=== PATIENT | female | born 1965 | race Caucasian/White ===

== ENCOUNTER 2017-07-14 07:27 | Outpatient (CLI) | payer OTHER | END 2017-07-14 07:28 | disposition home or self-care (01) | LOC: BICMAMMO 07:27 | PROVIDERS: ATTEND Obstetrics & Gynecology | DX: Z12.31 Encounter for screening mammogram for malignant neoplasm of breast (principal); Z13.820 Encounter for screening for osteoporosis; M85.88 Other specified disorders of bone density and structure, other site | CPT/HCPCS: 77067; 77080; G0279 ==

== ENCOUNTER 2018-01-19 05:07 | Emergency (ER) | payer OTHER ==
[2018-01-19] MEDS ORDERED: Fentanyl 100 MCG/2 ML VIAL ONE (05:22)
[2018-01-19] MEDS ORDERED: Bupivacaine 0.5% 10 ML VIAL ONE (05:22)
[2018-01-19] MEDS ORDERED: Ondansetron HCl/PF 4 MG/2 ML Vial ONE (05:22)
[2018-01-19] MEDS ORDERED: Morphine 4 MG/ML Carpuject ONE ×2 (05:54→06:14)
[2018-01-19] MEDS ORDERED: CEFAZOLIN 1 GM VIAL ONE (05:58)
[2018-01-19] MEDS ORDERED: Bacitracin Zinc 1 Packet ONE (06:04)
[2018-01-19] MEDS ORDERED: Adacel (T-DAP) 0.5 ML VIAL ONE (06:26)
[2018-01-19] MEDS ORDERED: HYDROcodone/Acetaminophen 7.5/325 mg Tablet ONE (06:45)
--- NOTE | 2018-01-19 07:37 | RAD ---
3 VIEWS LEFT WRIST: Date: 01/19/18 HISTORY: Left wrist pain after injury. Obvious deformity seen. FINDINGS: AP, lateral, and oblique views of left wrist obtained. Images demonstrate a transverse displaced frac ture involving the distal left radial and ulnar metaphyses. There is anterior and lateral displacemen t of the distal fracture fragments. No other significant abnormality seen. IMPRESSION: Distal left radial and ulnar fractures. POS: [facility]
--- NOTE | 2018-01-19 08:27 | RAD ---
4 VIEWS LEFT ELBOW: Date: 01/19/18 COMPARISON: None. HISTORY: Fall with left elbow pain. FINDINGS: Four views of the left elbow show no evidence of acute fracture or dislocation. No elbow effusion is seen. No degenerative changes are present. IMPRESSION: No evidence of acute osseous abnormality. POS: [facility]
--- NOTE | 2018-01-19 08:30 | RAD ---
LEFT WRIST TWO VIEWS: HISTORY: Distal radius fracture. COMPARISON: None. FINDINGS: Two views of the left wrist show an underlying splint, which obscures fine bony and soft tissue detai l. There are comminuted fractures of the metaphyses of the distal radius and ulna. The ulna fractur e is still moderately displaced on the lateral radiograph. IMPRESSION: Distal radius and ulna fractures. POS: [facility]
== END 2018-01-19 07:40 | disposition home or self-care (01) ==
LOC: SCSER 05:07
DX: S52.502A Unspecified fracture of the lower end of left radius, initial encounter for closed fracture (principal); S52.602A Unspecified fracture of lower end of left ulna, initial encounter for closed fracture; F41.9 Anxiety disorder, unspecified; W18.30XA Fall on same level, unspecified, initial encounter
CPT/HCPCS: 25660; 90471; 90715; 96361; 96365; 96375; J0690; J2270; J2405; J3010; J3490

== ENCOUNTER 2018-01-20 09:57 | Day surgery (SDC) | payer OTHER ==
[2018-01-19 12:30] VITALS: BMI 27.4
[2018-01-20] MEDS ORDERED: CEFAZOLIN/Water 2 GM/20 ML SYRINGE ONE (10:45)
[2018-01-20] MEDS ORDERED: Fentanyl 100 MCG/2 ML VIAL ONE (11:25)
[2018-01-20] MEDS ORDERED: Midazolam HCl 2 mg/2 ml Vial ONE (11:25)
[2018-01-20] MEDS ORDERED: Ropivacaine 0.5% HCl/PF (150 MG/30 ML VIAL) ONE (13:45)
[2018-01-20] MEDS ORDERED: PROPOFOL 200 MG/20 ML VIAL ONE (14:57)
[2018-01-20] MEDS ORDERED: Lidocaine 1% PF 5 ML VIAL ONE (14:57)
[2018-01-20] MEDS ORDERED: Ketorolac Tromethamine 30 MG/ML VIAL ONE (14:57)
[2018-01-20] MEDS ORDERED: Ondansetron HCl/PF 4 MG/2 ML Vial ONE (14:57)
--- NOTE | 2018-01-20 16:59 | RAD ---
LEFT FOREARM TWO VIEWS: 01/20/18 HISTORY: ORIF left distal radial and ulnar fractures. FINDINGS/IMPRESSION: Two spot fluoroscopic intraoperative images of the left distal forearm demonstrate interval reduction and internal fixation of the distal radial and ulnar fractures since the previous day's exam. POS: [facility]
--- NOTE | 2018-01-20 17:10 | OP ---
DATE OF PROCEDURE: 01/20/2018 SURGEON: Brock Cotton M.D. PREOPERATIVE DIAGNOSIS: Left distal radius and ulnar fracture. POSTOPERATIVE DIAGNOSIS: Left distal radius and ulnar fracture. PROCEDURE: Open reduction and internal fixation of left distal radius and open reduction and interna l fixation of left ulna. INDICATIONS: Ms. Dacosta is a 52-year-old female who fell. She fractured her distal radius and ulna . She was indicated for the above procedures to restore anatomic alignment and promote healing. Ris ks have been reviewed in detail. She elected to proceed with the operation. Risks include nonunion, malunion, nerve or vascular injury, infection, hardware failure or pain, and others. IMPLANTS: Synthes volar variable angle distal radius plate and Synthes 2.0 mini fragment locking odette te. DESCRIPTION OF PROCEDURE: Ms. Dacosta was identified in the preoperative holding area. Her correct extremity was marked. She was carried to the operating room. She was positioned supine. General an esthesia was induced. A multidisciplinary timeout was performed. The left upper extremity was prepp ed and draped in sterile fashion. We began the procedure with a FCR volar approach to the wrist. We dissected down through the subcuta neous tissues to the FCR tendon. The tendon sheath was opened. We then dissected more deeply down t o the pronator quadratus which was elevated from the distal radius. This allowed exposure of the rig ht distal radius fracture. This was comminuted and displaced. At this point, we performed an anatom ic reduction using K-wires and reduction clamps. We took x-ray images confirming reduction. We then applied a Synthes volar distal radius plate. We placed multiple locking screws distally and nonlock ing screws proximally. The plate fit well and there were no complications. We took final images aft er all hardware was placed. At this point, we moved to the ulna. The patient had a small puncture wound which was opened and irr igated thoroughly. We then performed an approach to the distal ulna. We dissected down through the subcutaneous tissues and exposed the distal ulna fracture. This was a transverse and displaced fract ure. At this point, we performed a reduction of the fracture after irrigation. We then held this wi th reduction clamps. Finally, we applied a Synthes 2.0 locking plate along the dorsal lateral cortex of the ulna rigidly fixing the fracture. Again, we took x-ray images. We thoroughly irrigated with copious lavage. We closed all wounds appropriately in layers and placed a sterile splint. The jarvis ent was taken to the recovery room in good condition without complication.
== END 2018-01-20 15:42 | disposition home or self-care (01) ==
LOC: SDC 09:57
PROVIDERS: ATTEND Orthopaedic Surgery
PROC: 0PSJ04Z Reposition Left Radius with Internal Fixation Device, Open Approach (ICD-10-PCS; principal; 2018-01-20)
PROC: 0PSL04Z Reposition Left Ulna with Internal Fixation Device, Open Approach (ICD-10-PCS; principal; 2018-01-20)
DX: S52.502A Unspecified fracture of the lower end of left radius, initial encounter for closed fracture (principal); S52.602A Unspecified fracture of lower end of left ulna, initial encounter for closed fracture; F41.9 Anxiety disorder, unspecified; Z79.899 Other long term (current) drug therapy; Z88.2 Allergy status to sulfonamides; W19.XXXA Unspecified fall, initial encounter
CPT/HCPCS: 76001; C1713; J1885; J2001; J2250; J2405; J2704; J2795; J3010

== ENCOUNTER 2018-01-27 14:04 | Outpatient (CLI) | payer OTHER | END 2018-01-27 14:05 | disposition home or self-care (01) | LOC: BICMAMMO 14:04 | PROVIDERS: ATTEND Obstetrics & Gynecology | DX: R92.8 Other abnormal and inconclusive findings on diagnostic imaging of breast (principal) | CPT/HCPCS: G0279 ==

== ENCOUNTER 2018-08-01 13:51 | Outpatient (CLI) | payer OTHER | END 2018-08-01 13:52 | disposition home or self-care (01) | LOC: BICMAMMO 13:51 | PROVIDERS: ATTEND Obstetrics & Gynecology | DX: Z12.31 Encounter for screening mammogram for malignant neoplasm of breast (principal) | CPT/HCPCS: 77066; G0279 ==

== ENCOUNTER 2020-04-29 15:02 | Outpatient (CLI) | payer BC ==
--- NOTE | 2020-04-29 15:56 | MMO ---
Bilateral MAMMO Bilat Screen [facility]. CLINICAL HISTORY: Patient is 54 years old and is seen for screening. The patient has no family history of breast cancer. The patient has no personal history of cancer. VIEWS: The views performed were: bilateral craniocaudal with tomosynthesis and bilateral mediolateral oblique with tomosynthesis. FILMS COMPARED: The present examination has been compared to prior imaging studies performed at [facility] on 07/14/2017, 01/27/2018 and 08/01/2018. This study has been interpreted with the assistance of computer-aided detection. MAMMOGRAM FINDINGS: The breasts are heterogeneously dense, which could obscure a lesion on mammography. There are stable benign appearing calcifications seen in both breasts. There are no suspicious masses, suspicious calcifications, or new areas of architectural distortion. IMPRESSION: THERE IS NO MAMMOGRAPHIC EVIDENCE OF MALIGNANCY. A ROUTINE FOLLOW-UP MAMMOGRAM IN 1 YEAR IS RECOMMENDED. THE RESULTS OF THIS EXAM WERE SENT TO THE PATIENT. ACR BI-RADS Category 2 - Benign finding MAMMOGRAPHY NOTE: 1. A negative mammogram report should not delay a biopsy if a dominant of clinically suspicious mass is present. 2. Approximately 10% to 15% of breast cancers are not detected by mammography. 3. Adenosis and dense breasts may obscure an underlying neoplasm. Reported by: ANA NICOLAS MD Electonically Signed: [id number]
== END 2020-04-29 15:03 | disposition home or self-care (01) ==
LOC: BICMAMMO 15:02
PROVIDERS: ATTEND Family Medicine
DX: Z12.31 Encounter for screening mammogram for malignant neoplasm of breast (principal)
CPT/HCPCS: 77063; 77067

== ENCOUNTER 2021-06-30 11:39 | Outpatient (CLI) | payer BC | END 2021-06-30 11:40 | disposition home or self-care (01) | LOC: BICMAMMO 11:39 | PROVIDERS: ATTEND Family Medicine | DX: Z12.31 Encounter for screening mammogram for malignant neoplasm of breast (principal) | CPT/HCPCS: 77063; 77067 ==

== ENCOUNTER → 2021-07-03 | Outpatient (CLI) | payer BC | LOC: SLEEPLAB 16:30 | PROVIDERS: ATTEND Family Medicine | DX: G47.33 Obstructive sleep apnea (adult) (pediatric) (principal); F41.9 Anxiety disorder, unspecified; R06.83 Snoring; G47.00 Insomnia, unspecified | CPT/HCPCS: 95806 ==

== ENCOUNTER 2023-01-01 15:04 | Outpatient (CLI) | payer BC | END 2023-01-01 15:05 | disposition home or self-care (01) | LOC: ULT 15:04 | PROVIDERS: ATTEND Family Medicine | DX: N95.0 Postmenopausal bleeding (principal) | CPT/HCPCS: 76856 ==

== ENCOUNTER 2023-06-23 07:32 | Outpatient (CLI) | payer BC | END 2023-06-23 07:33 | disposition home or self-care (01) | LOC: ULT 07:32 | PROVIDERS: ATTEND Family Medicine | DX: K80.20 Calculus of gallbladder without cholecystitis without obstruction (principal) | CPT/HCPCS: 76705 ==

== ENCOUNTER 2023-06-29 14:44 | Outpatient (CLI) | payer BC ==
[2023-06-29 15:22] LABS: #Basophils 0.1 10x3/uL (0.0-0.2); #Eosinphils 0.1 10x3/uL (0.0-0.5); #Monocytes 0.7 10x3/uL (0.0-1.1); #Neutrophils 2.8 10x3/uL (1.5-8.4); %Lymphocytes 24.9 % (18.0-47.0); %Neutrophils 57.5 % (40.0-75.0); Hemoglobin 13.3 g/dL (12.0-15.5); Mean Corpuscular HGB CONC 33.3 g/dL (32.0-36.0); Mean Corpuscular Hemoglobin 30.9 pg (27.0-33.0); Mean Platelet Volume 9.7 fl (7.4-10.4); Platelet Count 283 10x3/uL (150-450); RBC Distribution Width 13.5 % (11.5-14.5); White Blood Cell (WBC) Count 4.8 10x3/uL (3.5-10.5)
[2023-06-29 15:45] LABS: ALT (SGPT) 23 U/L (8-55); AST (SGOT) 23 U/L (5-34); Albumin 4.2 g/dL (3.5-5.0); Alkaline Phosphatase 53 U/L (40-110); Anion Gap 12 mmol/L (10-20); BUN (Urea Nitrogen) 13 mg/dL (9.8-20.1); Bilirubin, Direct 0.1 mg/dL (0.1-0.3); Bilirubin, Total 0.4 mg/dL (0.2-1.2); Calc. Creatinine Clearance 0 mL/min (70-130); Calcium 8.8 mg/dL (7.8-10.44); Carbon Dioxide 26 mmol/L (22-29); Chloride 109 mmol/L (98-107); Estimated GFR 57; Globulin 2.6 g/dL (2.4-3.5); Glucose 80 mg/dL (70-105); Potassium 4.2 mmol/L (3.5-5.1); Protein, Total 6.8 g/dL (6.0-8.3); Sodium 143 mmol/L (136-145)
== END 2023-06-29 14:45 | disposition home or self-care (01) ==
LOC: LABBT 14:44
PROVIDERS: ATTEND Surgery
DX: Z01.818 Encounter for other preprocedural examination (principal); K80.20 Calculus of gallbladder without cholecystitis without obstruction
CPT/HCPCS: 80053; 80076; 85025; 93005; 93010

== ENCOUNTER 2023-07-09 09:42 | Day surgery (SDC) | payer BC ==
[2023-06-29 15:08] VITALS: BMI 30.6
[2023-07-09] MEDS ORDERED: Sodium Chloride 0.9% 100 ML ONE (10:48)
[2023-07-09] MEDS ORDERED: cefOXitin 2 GM VIAL ONE (10:48)
[2023-07-09] MEDS ORDERED: Lidocaine 1% MPF 2 ML VIAL ONE (10:48)
[2023-07-09] MEDS ORDERED: Indocyanine Green 25 MG/10 ML VIAL ONE (11:21)
[2023-07-09] MEDS ORDERED: Bupivacaine 0.25% HCL 30 ML VIAL ONE (11:21)
[2023-07-09] MEDS ORDERED: EPINEPHrine 1 MG/ML VIAL ONE (11:21)
[2023-07-09] MEDS ORDERED: fentaNYL 50 mcg/mL 1 mL Vial ONE ×2 (11:48→12:20)
[2023-07-09] MEDS ORDERED: Famotidine/PF 20 mg/2ml Vial ONE (11:49)
[2023-07-09] MEDS ORDERED: PROPOFOL 20 ML ONE (11:54)
[2023-07-09] MEDS ORDERED: Lidocaine 2% PF 5 ML VIAL ONE (11:54)
[2023-07-09] MEDS ORDERED: Ondansetron PF 4 MG/2 ML Vial ONE (11:56)
[2023-07-09] MEDS ORDERED: Dexamethasone 4 mg/ml Vial ONE (11:56)
[2023-07-09] MEDS ORDERED: Rocuronium Bromide 10 MG/ML (10ML VIAL) ONE (11:56)
[2023-07-09] MEDS ORDERED: Metoclopramide HCl 10 MG (2 mL) VIAL ONE (11:56)
[2023-07-09] MEDS ORDERED: Ketorolac Tromethamine 30 MG (1 mL) VIAL ONE (11:56)
[2023-07-09] MEDS ORDERED: SUGAMMADEX SODIUM 200 MG/2 ML VIAL ONE (11:57)
[2023-07-09] MEDS ORDERED: diphenhydrAMINE 50 MG/ML VIAL ONE (12:42)
[2023-07-09] MEDS ORDERED: fentaNYL PF 100 MCG/2 ML SYRINGE ONE (13:08)
[2023-07-09] MEDS ORDERED: HYDROmorphone 0.5 MG/0.5 ML SYRINGE ONE (13:57)
[2023-07-09] MEDS ORDERED: Morphine 2 MG/ML VIAL ONE (15:06)
[2023-07-09] MEDS ORDERED: HYDROcodone/Acetaminophen 5/325 mg Tablet ONE (16:44)
== END 2023-07-09 17:00 | disposition home or self-care (01) ==
LOC: SDC 09:42
PROVIDERS: ATTEND Surgery
PROC: 0FT44ZZ Resection of Gallbladder, Percutaneous Endoscopic Approach (ICD-10-PCS; principal; 2023-07-09)
DX: K80.10 Calculus of gallbladder with chronic cholecystitis without obstruction (principal); F41.1 Generalized anxiety disorder; Z79.899 Other long term (current) drug therapy; Z88.2 Allergy status to sulfonamides
CPT/HCPCS: 88304; C1776; J0171; J0694; J1100; J1170; J1200; J1885; J2001; J2272; J2405; J2704; J2765; J3010; J3490; S0020; S0028

== ENCOUNTER 2023-12-15 15:25 | Outpatient (CLI) | payer BC | END 2023-12-15 15:26 | disposition home or self-care (01) | LOC: BICULT 15:25 | PROVIDERS: ATTEND Family Medicine | DX: E04.1 Nontoxic single thyroid nodule (principal) | CPT/HCPCS: 76536 ==

== ENCOUNTER 2024-02-04 12:24 | Outpatient (CLI) | payer BC | END 2024-02-04 12:25 | disposition home or self-care (01) | LOC: BICMAMMO 12:24 | PROVIDERS: ATTEND Family Medicine | DX: Z12.31 Encounter for screening mammogram for malignant neoplasm of breast (principal) | CPT/HCPCS: 77063; 77067 ==